=== PATIENT | male | born 1930 | race Caucasian/White ===

== ENCOUNTER 2017-02-11 16:16 | Emergency (ER) | payer OTHER ==
--- NOTE | 2017-02-11 16:22 | PDOC ---
Attending Attestation - Resident Resident Name: Brandee Cabrera - ED Attending Attestation I have performed the following: I have examined & evaluated the patient, The case was reviewed & discussed with the resident, I agree w/resident's findings & plan, Exceptions are as noted - HPI HPI: 02/11/17 16:22 The patient is an 86-year-old male who presents with 4 days of right ankle pain. He reports that he has been playing and atypically large amount of golf, especially on Monday and Monday. He does not recall any inversion or eversion injuries. He denies rash, fever. He denies blunt trauma. 02/11/17 16:34 - Physicial Exam PE: 02/11/17 16:22 He is well-appearing and in no acute distress There is minimal tenderness over the medial and lateral maleoli, which seems mostly soft tissue He has tenderness over the talofibular ligament There is increased pain with forced ankle inversion There is no apparent edema 02/11/17 16:35 02/11/17 16:38 - Medical Decision Making 02/11/17 16:35 He is well-appearing and in no acute distress Will obtain plain x-ray 02/11/17 17:05 Emergency Department interpretation of ankle x-ray: No acute pathology His clinical presentation is most consistent with lateral ankle sprain, of the talofibular ligament Clinical impression: Ankle sprain, talofibular ligament I discussed the physical exam findings, ancillary test results and final diagnoses with the patient. I answered all of the patient's questions. The patient was satisfied with the care received and felt comfortable with the discharge plan and treatment plan. The patient will call their primary care physician within 24 hours to arrange follow-up and will return to the Emergency Department with any new, persistent or worsening symptoms. Discharge Disposition - Diagnosis Ankle sprain - Discharge Dispostion Disposition: HOME Condition at time of disposition: Improved - Referrals Referrals: Anton Bowser MD [Staff Physician] - - Patient Instructions Printed Discharge Instructions: DI for Ankle Sprain Additional Instructions: Return to the emergency department immediately with ANY new, persistent or worsening symptoms. You MUST call and follow up with your doctor tomorrow. Please make sure your doctor reviews the results of your emergency department evaluation.
[2017-02-11 16:28] VITALS: BP 155/75; PULSE 61; TEMP 98.2; BMI 25.0
--- NOTE | 2017-02-11 16:45 | PDOC ---
History of Present Illness - General Chief Complaint: Injury Stated Complaint: LEFT ANKLE AND LOWER LEG SWELLING Time Seen by Provider: 02/11/17 16:21 History Source: Patient Exam Limitations: No Limitations - History of Present Illness Initial Comments: 02/11/17 16:45 This is an 86 yo M with PMH of HTN, who presents due to R ankle pain. he exerted himself last tue, but does not recall injury. On mon morning ankle was edematois and painful. There is no pain with weight bearing but mild pain when walking. He has had a prior injury to R achiles tendon many years ago. He denies rash, trauma, f/c, echymoses. He denies lesions or discharge. He denies history of gout or bleeding disorder. 02/11/17 16:45 Past History - Past Medical History Allergies/Adverse Reactions: Allergies Allergy/AdvReac Type Severity Reaction Status Date / Time No Known Allergies Allergy Verified 02/11/17 16:17 Home Medications: Ambulatory Orders Amlodipine Besylate [Norvasc -] 5 mg PO DAILY 10/12/15 HTN: Yes - Psycho/Social/Smoking Cessation Hx Anxiety: No Suicidal Ideation: No Smoking History: Former smoker Have you smoked in the past 12 months: No If you are a former smoker, when did you quit?: 1969 Information on smoking cessation initiated: No Hx Alcohol Use: No Drug/Substance Use Hx: No Substance Use Type: None Review of Systems - Review of Systems Able to Perform ROS?: Yes Is the patient limited [place] proficient: No Constitutional: No: Chills, Fever, Weakness HEENTM: No: Nose Congestion, Throat Pain Respiratory: No: Cough, Orthopnea, Shortness of Breath Cardiac (ROS): Yes: Edema (R ankle ). No: Chest Pain, Syncope, Chest Tightness ABD/GI: No: Abdominal Distended, Constipated, Diarrhea, Nausea, Vomiting : No: Dysuria, Flank Pain Musculoskeletal: Yes: Joint Pain (R ankle ), Joint Swelling, Joint Stiffness. No: Muscle Pain, Muscle Weakness Integumentary: No: Bruising, Lesions, Rash Neurological: No: Headache, Numbness, Paresthesia Psychiatric: No: Anxiety Endocrine: No: Change in Weight Hematologic/Lymphatic: No: Anemia, Blood Clots, Easy Bleeding, Easy Bruising All Other Systems: Reviewed and Negative *Physical Exam - Vital Signs Last Vital Signs Temp Pulse Resp BP Pulse Ox 98.2 F 61 16 155/75 98 02/11/17 16:20 02/11/17 16:20 02/11/17 16:20 02/11/17 16:20 02/11/17 16:20 - Physical Exam Comments: 02/11/17 16:48 GENERAL: NAD, AAOx3 HEENT: normocephalic, atraumatic, sclera anicteric, conjunctiva clear SKIN: no echymoses, rashes, lesions or cellulitis Extremities: R ankle edematous 1+, pain to palpation on medial and lateral malleolus. Pain in lateral malleolus with inversion 02/11/17 16:52 ED Treatment Course - RADIOLOGY Radiology Studies Ordered: Category Date Time Status ANKLE & FOOT-RIGHT* [RAD] Stat Radiology 02/11/17 16:34 Ordered Medical Decision Making - Medical Decision Making 02/11/17 16:52 patient presents with probable ankle sprain. [place] ankle rule indicated ankle series X rays. 02/11/17 17:24 ankle/ffot x ray unremarkable *DC/Admit/Observation/Transfer Diagnosis at time of Disposition: Ankle sprain - Discharge Dispostion Condition at time of disposition: Stable - Referrals Referrals: Anton Bowser MD [Staff Physician] - - Patient Instructions Printed Discharge Instructions: DI for Ankle Sprain Additional Instructions: Return to the emergency department immediately with ANY new, persistent or worsening symptoms. You MUST call and follow up with your doctor tomorrow. Please make sure your doctor reviews the results of your emergency department evaluation. - Post Discharge Activity
== END 2017-02-11 17:22 | disposition home or self-care (01) ==
LOC: FER 16:16
DX: S93.401A Sprain of unspecified ligament of right ankle, initial encounter (principal); X58.XXXA Exposure to other specified factors, initial encounter; Y93.9 Activity, unspecified; Y92.9 Unspecified place or not applicable; I10 Essential (primary) hypertension; Z87.891 Personal history of nicotine dependence
CPT/HCPCS: 73610-TC-RT; 73630-TC-RT; 99281-25